=== PATIENT | male | born 1935 | race Caucasian/White ===

== ENCOUNTER 2017-06-28 17:04 | Observation (INO) ==
--- NOTE | 2017-06-28 17:21 | Emergency Department Note ---
Disposition Clinical Impression: Rectal bleeding Abdominal pain Qualifiers: Abdominal location: generalized Qualified Code(s): R10.84 - Generalized abdominal pain Disposition: Admitted As Inpatient Condition: Fair Referrals: Jared Woods MD [Primary Care Provider] - Forms: ED Satisfaction Letter, Work/School Release Time of Disposition: 19:29 Abdominal Pain HPI - General Chief Complaint: ED Abdominal Pain Stated Complaint: Abdominal pain/possible pancreatitis Time Seen by Provider: 06/28/17 17:15 Source: patient Mode of arrival: ambulatory Limitations: no limitations Nursing Notes Reviewed: Yes Vital Signs Reviewed: Yes - History of Present Illness HPI Narrative: 82-year-old male who has had intermittent abdominal pain for the last several weeks. Was told at an outside facility may has pancreatitis but did not do any testing. Any asking where his pain is today he says is really not having pain. States he also has intermittent bloating. Patient states he's never had a colonoscopy. Pt Subjective Complaint: abdominal pain Onset (ago): week(s) Consistency: intermittent Location: diffuse Pain Scale: 10 Quality: cramping, aching Radiation: none Migration to: no migration Improves with: nothing Worsens with: nothing Associated symptoms: Reports: other (Darks stools) Treatments prior to arrival: none - Related Data Home Medications Medication Instructions Recorded Confirmed Atorvastatin Calcium [Lipitor] 0.5 tab PO DAILY 05/19/15 08/15/15 Carbidopa/Levodopa 10/100 [Sinemet] 1 each PO TID 08/15/15 08/15/15 Carvedilol [Coreg] 1 tab PO DAILY 08/15/15 08/15/15 Ezetimibe [Zetia] 10 mg PO DAILY 08/15/15 08/15/15 Furosemide [Lasix] 40 mg PO DAILY 08/15/15 08/15/15 Losartan [Cozaar] 50 mg PO DAILY 08/15/15 08/15/15 Methylsulfonylmethane [MSM] 750 mg PO DAILY 08/15/15 08/15/15 [place]-3S/Dha/Epa/Fish Oil/D3 1 each PO DAILY 08/15/15 08/15/15 [[place]-3 + D Softgel] Tamsulosin [Flomax] 0.4 mg PO DAILY 08/15/15 08/15/15 Previous Rx's Medication Instructions Recorded Benzonatate [Tessalon] 200 mg PO TID PRN #30 capsule 08/17/15 GuaiFENesin ER [Mucinex] 600 mg PO BID PRN #20 tbbp.12hr 08/17/15 levoFLOXacin [Levaquin] 250 mg PO DAILY #7 tablet 08/17/15 Allergies Allergy/AdvReac Type Severity Reaction Status Date / Time isosorbide [From Imdur] Allergy Hives Verified 06/28/17 17:10 lisinopril Allergy Hives Verified 06/28/17 17:10 All systems ED: reviewed and negative except as stated. Constitutional: Denies: fever, chills, weakness, weight change Eyes: Denies: eye pain, eye discharge, vision change ENT ED: Denies: ear pain, throat pain, dental pain, hearing loss, epistaxis, congestion, dysphagia Cardiovascular: Denies: chest pain, palpitations, dyspnea on exertion, edema, syncope Respiratory: Denies: cough, dyspnea, wheezes, hemoptysis, stridor Gastrointestinal: Reports: abdominal pain, other. Denies: nausea, vomiting, diarrhea, constipation, hematemesis, melena, hematochezia Genitourinary: Denies: urgency, dysuria, frequency, hematuria Musculoskeletal: Denies: back pain, neck pain, arthralgia, myalgia Integumentary: Denies: rash, abrasion, lesions Neurological: Denies: headache, weakness, numbness, paresthesias, confusion, abnormal gait, vertigo Psychiatric: Denies: anxiety, depression, suicidal thoughts, homicidal thoughts , auditory hallucinations, visual hallucinations Endocrine: Denies: fatigue Hematological/Lymphatic: Denies: easy bleeding, easy bruising Allergic/Immunologic: Denies: facial swelling, urticaria Abdominal Pain PMH - Past Medical History Medical history: Reports: arthritis, cancer, CHF, coronary artery disease, DVT, dementia, hyperlipidemia, hypertension, kidney stones, myocardial infarction, renal disease Male Surgical History: Reports: other Psychiatric history: Reports: depression - Social History Smoking status: Never smoker Alcohol use: Reports: none Drug use: Reports: none Physical Exam - General Limitations: no limitations General appearance: alert - Head Head exam: atraumatic, normocephalic, normal inspection - Eye Eye exam: Present: normal appearance, PERRL, EOMI - ENT ENT exam: normal exam - Neck Neck exam: Present: normal inspection - Chest Chest inspection: Present: normal inspection, symmetric chest wall rise - Respiratory Respiratory exam: Present: normal lung sounds bilaterally - Cardiovascular Cardiovascular exam: Present: regular rate, normal rhythm, normal heart sounds - Abdominal Exam Abdominal exam: Present: soft. Absent: guarding, rebound, pulsatile mass - Extremities Exam Extremities exam: Present: normal inspection, full ROM. Absent: tenderness, pedal edema - Expanded Lower Extremity Exam Neurovascular/Tendon exam: Absent: motor deficit, sensory deficit, tendon deficit Gait: observed and normal - Back Exam Back exam: Present: normal inspection, full ROM. Absent: tenderness - Neurological Exam Neurological exam: Present: alert, oriented X3 - Psychiatric Psychiatric exam: Present: normal affect, normal mood - Skin Skin exam: Present: warm, dry, intact, normal color Course - Consultations Consultation #1: 82-year-old male who has had intermittent abdominal pain for several weeks and rectal bleeding. Hemoglobin has dropped about 1.3 g in the last several weeks. CT scan shows gallstones but no cholecystitis and is not really tender over the gallbladder. We'll admit to assure that he is not dropping his hemoglobin rapidly. Discussed with Dr. Herzog, admit Time: 19:27 Vital Signs Temperature 98.2 F 06/28/17 17:10 Pulse Rate 84 06/28/17 17:10 Respiratory Rate 20 06/28/17 17:10 Blood Pressure 144/81 06/28/17 17:10 O2 Sat by Pulse Oximetry 97 06/28/17 17:10 Temperature 98.2 F 06/28/17 17:10 Pulse Rate 78 06/28/17 17:27 Respiratory Rate 14 06/28/17 17:27 Blood Pressure 153/82 06/28/17 17:27 O2 Sat by Pulse Oximetry 96 06/28/17 17:27 Oxygen Delivery Oxygen Delivery Room Air Abdominal Pain - Lab Data Result diagrams: 06/28/17 18:26 06/28/17 18:26 Lab Results 06/28/17 06/28/17 06/28/17 Range/Units 17:50 18:26 18:26 WBC 9.6 (4.3-11.1) K/mcL RBC 4.21 (4.19-5.50) M/mcL Hgb 12.8 L (12.9-16.9) g/dL Hct 38.5 (37.5-50.1) % MCV 91.4 (83.0-100.0) fL MCH 30.4 (28.0-33.3) pg MCHC 33.2 (31.6-35.5) g/dL RDW 13.1 (11.5-14.5) % Plt Count 271 (140-400) K/mcL MPV 10.0 (9.4-12.4) fL Immature Gran % 0.7 (0-4) % Seg Neutrophils % 63.9 % Lymphocytes % 22.2 % Monocytes % 9.0 % Eosinophils % 3.3 % Basophils % 0.9 % Neutrophils # 6.1 (1.6-8.9) K/mcL Lymphocytes # 2.1 (0.6-4.6) K/mcL Monocytes # 0.9 (0.0-1.3) K/mcL Eosinophils # 0.3 (0.0-0.6) K/mcL Basophils # 0.1 (0.0-0.2) K/mcL Sodium 142 (136-145) mEq/L Potassium 4.0 (3.5-4.5) mEq/L Chloride 111 H (98-109) mEq/L Carbon Dioxide 22 (19-29) mEq/L BUN 19 (8-26) mg/dL Creatinine 1.52 H (0.72-1.25) mg/dL Est GFR ( Amer) 53 L (> 60) Est GFR (Non-Af Amer) 44 L (> 60) BUN/Creatinine Ratio 13 (6-26) Glucose 111 H (70-99) mg/dL Calculated Osmolality 297 (280-300) Lactic Acid (0.5-2.2) mmol/L Calcium 8.5 L (8.6-10.8) mg/dL Total Bilirubin 0.4 (0.2-1.2) mg/dL Direct Bilirubin 0.1 (0.0-0.5) mg/dL Indirect Bilirubin 0.3 (0.0-1.2) mg/dL AST 13 (5-34) Units/L ALT 13 (0-55) Units/L Alkaline Phosphatase 95 (38-126) Units/L Troponin I (0-0.03) ng/mL Serum Total Protein 6.0 (6.0-8.3) g/dL Albumin 3.3 L (3.5-5.0) g/dL Globulin 2.7 (2.4-3.5) g/dL Albumin/Globulin Ratio 1.2 (1.1-2.2) Amylase 85 (25-125) Units/L Lipase 24 (8-78) Units/L Stool Occult Blood Positive A (Negative) 06/28/17 06/28/17 Range/Units 18:26 18:26 WBC (4.3-11.1) K/mcL RBC (4.19-5.50) M/mcL Hgb (12.9-16.9) g/dL Hct (37.5-50.1) % MCV (83.0-100.0) fL MCH (28.0-33.3) pg MCHC (31.6-35.5) g/dL RDW (11.5-14.5) % Plt Count (140-400) K/mcL MPV (9.4-12.4) fL Immature Gran % (0-4) % Seg Neutrophils % % Lymphocytes % % Monocytes % % Eosinophils % % Basophils % % Neutrophils # (1.6-8.9) K/mcL Lymphocytes # (0.6-4.6) K/mcL Monocytes # (0.0-1.3) K/mcL Eosinophils # (0.0-0.6) K/mcL Basophils # (0.0-0.2) K/mcL Sodium (136-145) mEq/L Potassium (3.5-4.5) mEq/L Chloride (98-109) mEq/L Carbon Dioxide (19-29) mEq/L BUN (8-26) mg/dL Creatinine (0.72-1.25) mg/dL Est GFR ( Amer) (> 60) Est GFR (Non-Af Amer) (> 60) BUN/Creatinine Ratio (6-26) Glucose (70-99) mg/dL Calculated Osmolality (280-300) Lactic Acid 1.4 (0.5-2.2) mmol/L Calcium (8.6-10.8) mg/dL Total Bilirubin (0.2-1.2) mg/dL Direct Bilirubin (0.0-0.5) mg/dL Indirect Bilirubin (0.0-1.2) mg/dL AST (5-34) Units/L ALT (0-55) Units/L Alkaline Phosphatase (38-126) Units/L Troponin I 0.00 (0-0.03) ng/mL Serum Total Protein (6.0-8.3) g/dL Albumin (3.5-5.0) g/dL Globulin (2.4-3.5) g/dL Albumin/Globulin Ratio (1.1-2.2) Amylase (25-125) Units/L Lipase (8-78) Units/L Stool Occult Blood (Negative)
[2017-06-28 18:39] LABS: Basophils # 0.1 K/mcL (0.0-0.2); Basophils % 0.9 %; Eosinophils # 0.3 K/mcL (0.0-0.6); Eosinophils % 3.3 %; Hematocrit 38.5 % (37.5-50.1); Hemoglobin 12.8 g/dL (12.9-16.9); Immature Granulocytes % 0.7 % (0-4); Lymphocytes # 2.1 K/mcL (0.6-4.6); Lymphocytes % 22.2 %; Mean Corpuscular HGB Conc 33.2 g/dL (31.6-35.5); Mean Corpuscular Hemoglobin 30.4 pg (28.0-33.3); Mean Corpuscular Volume 91.4 fL (83.0-100.0); Monocytes # 0.9 K/mcL (0.0-1.3); Neutrophils # 6.1 K/mcL (1.6-8.9); Platelet Count 271 K/mcL (140-400); Red Blood Count 4.21 M/mcL (4.19-5.50); Red Cell Distribution Width 13.1 % (11.5-14.5); Segmented Neutrophils % 63.9 %
[2017-06-28 18:57] LABS: Albumin 3.3 g/dL (3.5-5.0); Albumin/Globulin Ratio 1.2 (1.1-2.2); Bilirubin,Direct 0.1 mg/dL (0.0-0.5); Bilirubin,Indirect 0.3 mg/dL (0.0-1.2); Bilirubin,Total 0.4 mg/dL (0.2-1.2); Calcium 8.5 mg/dL (8.6-10.8); Globulin 2.7 g/dL (2.4-3.5)
--- NOTE | 2017-06-29 00:26 | Internal Med History&Physical ---
Date of Encounter: 06/29/17 Time of Encounter: 11:00 Assessment and Plan (1) Rectal bleeding Current visit: Yes Status: Acute -Patient found to have occult positive stool in the ER. -Patient also with acute blood loss anemia but is hemodynamically stable. -Will consult GI for colonoscopy (2) Acute blood loss anemia Current visit: Yes Status: Acute -Secondary to the above; hemoglobin 12.8. -Will continue to monitor. (3) CKD (chronic kidney disease) stage 3, GFR 30-59 ml/min Current visit: Yes Status: Acute -Stable; creatinine at baseline. -Will continue to monitor. (4) DVT prophylaxis Current visit: Yes Status: Acute -SCDs Internal Medicine - H&P: HPI Chief complaint: Rectal bleeding Admitted From: Home Plans for Post Hospital Care: Home History of present illness: Patient is an 82-year-old male with past medical history significant for CKD stage III, who presented to the ER on 06/28/17 with lower GI bleed. Patient is a poor historian with suspected underlying dementia and is only oriented to person on exam. In the ER patient was found to have occult positive stool in addition to anemia (hemoglobin 12.8). Patient will be admitted to the medical floor for acute blood loss anemia secondary to lower GI bleed. Past Med Surg Social Fam HX - Past Medical History Medical history: arthritis, cancer, CHF, coronary artery disease, DVT, dementia , hyperlipidemia, hypertension, kidney stones, myocardial infarction, renal disease Psychiatric history: depression - Past Surgical History Surgical History: cancer surgery, coronary bypass (CABG), other - Social History Smoking Status: Never smoker Smokeless Tobacco Status: No Alcohol use: none Drug use: none - Family History Son Adopted: No Family Member Ethnicity: Non- Living Status: Still Living Hx Family Cardiac Disorders: Yes Hx Family Respiratory Disorders: No Hx Family Cancer: Yes Hx Family GI Disorders: No Hx Family Endocrine Disorder: No Hx Family Neuromuscular Disorders: No Hx Family Neurologic Disorders: No Hx Family HEENT Disorders: No Hx Family Autoimmune Disorders: No Internal Medicine - H&P: Meds Tamsulosin [Flomax] 0.4 mg PO DAILY 08/15/15 [History] Cholecalciferol (D-3) [Vitamin D] 3,000 unit PO DAILY 06/28/17 [History] Vit A/Vit C/Vit E/Zinc/Copper [Preservision Areds Tablet] 1 each PO BID [History] 3 Allergy/AdvReac Type Severity Reaction Status Date / Time isosorbide [From Imdur] Allergy Hives Verified 06/28/17 17:10 lisinopril Allergy Hives Verified 06/28/17 17:10 ROS unobtainable: due to mental status (Patient oriented to person only; suspected underlying dementia) All Systems PM: A 10-system review of systems was performed and is negative for pertinent findings except as documented above in the HPI. - Constitutional Vitals: Temp Pulse Resp BP Pulse Ox 97.9 F 76 18 174/84 96 06/28/17 21:49 06/28/17 21:49 06/28/17 21:49 06/28/17 21:49 06/28/17 23:00 General appearance: Present: A&O X 1 - Head Head exam: Present: atraumatic, normocephalic - Eye Eye exam: Present: normal appearance - ENT ENT exam: Present: mucous membranes moist - Respiratory Respiratory exam: Present: CTAB. Absent: accessory muscle use, rales, rhonchi, wheezes - Cardiovascular Cardiovascular exam: Present: RRR, +S1, +S2. Absent: diastolic murmur, gallop, rubs, systolic murmur - GI/Abdominal GI/Abdominal exam: Present: normal bowel sounds, soft, no peritoneal signs. Absent: distended, tenderness - Extremities Exam Extremities exam: Present: warm. Absent: pedal edema - Neurological Exam Neurological exam: Present: alert - Psychiatric Psychiatric exam: Present: normal mood - Skin Skin exam: Present: warm Internal Med - H&P Results - Labs CBC & Chem 7: 06/28/17 18:26 06/28/17 18:26
[2017-06-29] MEDS ORDERED: Naloxone 0.4 MG/ML INJ IVP PRN (00:37)
[2017-06-29 04:53] LABS: Basophils # 0.1 K/mcL (0.0-0.2); Basophils % 0.8 %; Eosinophils # 0.4 K/mcL (0.0-0.6); Eosinophils % 3.9 %; Hematocrit 41.5 % (37.5-50.1); Hemoglobin 13.8 g/dL (12.9-16.9); Immature Granulocytes % 0.6 % (0-4); Lymphocytes # 2.2 K/mcL (0.6-4.6); Mean Corpuscular HGB Conc 33.3 g/dL (31.6-35.5); Mean Corpuscular Hemoglobin 29.9 pg (28.0-33.3); Mean Platelet Volume 10.3 fL (9.4-12.4); Monocytes # 0.8 K/mcL (0.0-1.3); Monocytes % 7.3 %; Platelet Count 258 K/mcL (140-400); Red Blood Count 4.61 M/mcL (4.19-5.50); Red Cell Distribution Width 12.9 % (11.5-14.5); Segmented Neutrophils % 66.4 %
[2017-06-29 05:12] LABS: Calcium 8.9 mg/dL (8.6-10.8); Potassium 3.9 mEq/L (3.5-4.5)
--- NOTE | 2017-06-29 11:40 | Gastroenterology Consult Note ---
Date of Encounter: 06/29/17 Time of Encounter: 10:30 - Assessment and plan (1) Abdominal pain Current Visit: Yes Status: Acute Assessment and plan: Pt presents with abdominal pain. He had Hgb 12.8 in ER has increased to 13.8 this morning. He is not having any active bleeding or drop in Hgb would recommend he follow up as an outpatient for EGD and colonoscopy. Qualifiers: Abdominal location: left lower quadrant Qualified Code(s): R10.32 - Left lower quadrant pain - Time Spent With Patient Total time spent is greater than 50% in coordination of care (as documented) at patient's floor/unit and/or counseling patient: GI History of Present Illness - Data of Consult Patient: new to practice Consult date: 06/29/17 Requesting Physician: Aleksandr Au MD - Consult Narrative Reason for consult: anemia, positive hemoccult History of present illness: Mr. Gonzalez is a 82 year old male with past medical history significant for CKD stage III, renal cell carcinoma resected, DVTs and CAD. He presented to the ER on 06/28/17 with abdominal pain. In the ER patient was found to have occult positive stool hgb was 12.8. Hgb today is 13.8. The patient reports pain in his epigastric area and to LLQ but is a poor historian due to dementia and confusion. He denies nausea, vomiting, or dysphagia. He denies diarrhea or constipation, he denies bloody or tarry stools. His is not present during exam. CT abdomen showed cholelithiasis. No CT evidence of cholecystitis. Status post right nephrectomy. 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 Colonoscopy: denies EGD:denies NSAIDS/ASA: Anticoagulants: xarelto? has been on in the past for DVTs usure if he is still taking Past Med Surg Social Fam HX - Past Medical History Medical history: arthritis, cancer, CHF, coronary artery disease, DVT, dementia , hyperlipidemia, hypertension, kidney stones, myocardial infarction, renal disease Psychiatric history: depression - Past Surgical History Surgical History: cancer surgery, coronary bypass (CABG), other - Social History Smoking Status: Never smoker Smokeless Tobacco Status: No Alcohol use: none Drug use: none - Family History Son Adopted: No Family Member Ethnicity: Non- Living Status: Still Living Hx Family Cardiac Disorders: Yes Hx Family Respiratory Disorders: No Hx Family Cancer: Yes Hx Family GI Disorders: No Hx Family Endocrine Disorder: No Hx Family Neuromuscular Disorders: No Hx Family Neurologic Disorders: No Hx Family HEENT Disorders: No Hx Family Autoimmune Disorders: No Review of Systems: difficult to obtain with accuracy due to dementia GI: as per [place] GENERAL: denies fever, or chills EYES: denies yellow discoloration ENT: denies pain with swallowing or difficulty swallowing CARDIO: denies chest pain, palpitations RESP: Shortness of breath with exertion : denies change in color of urine NEURO: weakness HEME: Denies any bruising MS: denies joint pain, joint swelling or back pain. DERM: denies rash or itching PSYCH: Denies history of anxiety or depression - Constitutional Vitals: Temp Pulse Resp BP Pulse Ox 97.7 F 74 16 176/89 95 06/29/17 10:45 06/29/17 10:45 06/29/17 10:45 06/29/17 10:45 06/29/17 10:45 Exam: CONSTITUTIONAL:~alert, no acute distress.~HEAD:~normocephalic.~EYES:~no jaundice.~NECK:~no obvious swelling.~HEART:~regular rate and rhythm, systolic murmur noted.~LUNGS:~bilateral good air entry.~ABDOMEN:~non distended, soft, tender LLQ, no masses palpable, no organomegaly.~RECTAL EXAM:~Deferred.~ EXTREMITIES:~no clubbing, cyanosis or edema.~SKIN:~no stigmata of chronic liver disease.~NEUROLOGIC:~no obvious focal defect.~~~~ Results - Labs CBC & Chem 7: 06/29/17 03:37 06/29/17 03:37 Labs: Last Result Calcium 8.9 mg/dL (8.6-10.8) 06/29/17 03:37 Troponin I 0.00 ng/mL (0-0.03) 06/28/17 18:26 Stool Occult Blood Positive (Negative) A 06/28/17 17:50 Entire Visit Hgb 13.8 g/dL (12.9-16.9) 06/29/17 03:37 Hct 41.5 % (37.5-50.1) 06/29/17 03:37 Total Bilirubin 0.4 mg/dL (0.2-1.2) 06/28/17 18:26 AST 13 Units/L (5-34) 06/28/17 18:26 ALT 13 Units/L (0-55) 06/28/17 18:26 Amylase 85 Units/L (25-125) 06/28/17 18:26 Lipase 24 Units/L (8-78) 06/28/17 18:26 Consult Discharge Plan - Plan Referrals: Jared Woods MD [Primary Care Provider] -
[2017-06-29 13:41] LABS: Bilirubin,Urine Negative (Negative); Blood,Urine Negative (Negative); Clarity,Urine Clear (Clear); Color,Urine Yellow (Yellow); Glucose,Urine (UA) Normal (Normal); Ketones,Urine Negative (Negative); Leukocyte Esterase,Urine Negative (Negative); Nitrite,Urine Negative (Negative); PH,Urine 7.5 pH Units (5.0-8.0); Protein,Urine Negative (Neg-Trace); Specific Gravity,Urine 1.019 (1.010-1.025); Urobilinogen,Urine Normal (Normal)
--- NOTE | 2017-06-29 16:37 | Internal Med Progress Note ---
Date of Encounter: 06/29/17 Time of Encounter: 10:00 - Assessment and plan (1) Abdominal pain Current Visit: Yes Status: Acute Assessment and plan: No evidence of intra-abdominal pathology to account for this based on clinical evaluation and CAT scan. We will monitor. Qualifiers: Abdominal location: left lower quadrant Qualified Code(s): R10.32 - Left lower quadrant pain (2) Rectal bleeding Current Visit: Yes Status: Acute Assessment and plan: GI consult. Monitor hemoglobin and hematocrit. Follow-up hemoglobin was 13.8 which has increased from previous. Monitor hemodynamically. (3) CKD (chronic kidney disease) stage 3, GFR 30-59 ml/min Current Visit: Yes Status: Acute Assessment and plan: Avoid nephrotoxins. Monitor creatinine. (4) DVT prophylaxis Current Visit: Yes Status: Acute Assessment and plan: SCDs. (5) Risk for falls Current Visit: Yes Status: Acute Assessment and plan: Fall precautions. PT OT (6) Dementia Current Visit: Yes Status: Acute Assessment and plan: Patient's family member states that she does not feel safe taking him home due to fall risk and, impairment. I will consult PT OT and clinical social work aide for placement. Qualifiers: Dementia type: Alzheimer's disease Alzheimer's disease onset: unspecified onset Dementia behavioral disturbance: without behavioral disturbance Qualified Code(s): G30.9 - Alzheimer's disease, unspecified; F02.80 - Dementia in other diseases classified elsewhere without behavioral disturbance; F02.80 - Dementia in other diseases classified elsewhere without behavioral disturbance; F02.80 - Dementia in other diseases classified elsewhere without behavioral disturbance - Subjective Interval history: Patient brought into the hospital for evaluation of abdominal pain. Per ED note was also reported that he had rectal bleeding however the patient has dementia and cannot confirm this. Fecal occult blood was positive. CT scan of the abdomen and pelvis shows gallstones.. Patient currently denies any complaints. - Constitutional Vitals: Temp Pulse Resp BP Pulse Ox 96.8 F L 76 16 164/81 97 06/29/17 15:20 06/29/17 15:20 06/29/17 15:20 06/29/17 15:20 06/29/17 15:20 General appearance: Present: A&O X 1 - Respiratory Respiratory exam: Present: CTAB. Absent: accessory muscle use, rales, rhonchi, wheezes - Cardiovascular Cardiovascular exam: Present: RRR, +S1, +S2. Absent: diastolic murmur, gallop, rubs, systolic murmur - GI/Abdominal GI/Abdominal exam: Present: normal bowel sounds, soft, no peritoneal signs. Absent: distended, tenderness - Extremities Exam Extremities exam: Present: warm, radial pulses palpable and symmetrical. Absent : calf tenderness, cyanotic, pedal edema - Skin Skin exam: Present: dry, intact Internal Medicine: Result - Labs CBC & Chem 7: 06/29/17 03:37 06/29/17 03:37 Labs: Short CBC 06/29/17 Range/Units 03:37 WBC 10.6 (4.3-11.1) K/mcL Hgb 13.8 (12.9-16.9) g/dL Hct 41.5 (37.5-50.1) % Plt Count 258 (140-400) K/mcL Neutrophils # 7.0 (1.6-8.9) K/mcL BMP 06/29/17 03:37 Sodium 143 Potassium 3.9 Chloride 109 Carbon Dioxide 27 BUN 17 Creatinine 1.56 H Glucose 94 Calcium 8.9 Urine 06/29/17 Range/Units 13:20 Urine Color Yellow (Yellow) Urine Clarity Clear (Clear) Urine pH 7.5 (5.0-8.0) pH Units Ur Specific [place] 1.019 (1.010-1.025) Urine Protein Negative (Neg-Trace) mg/dL Urine Glucose (UA) Normal (Normal) mg/dL Consult Discharge Plan - Plan Referrals: Jared Woods MD [Primary Care Provider] -
[2017-06-29] MEDS ORDERED: Pantoprazole 40 MG VIAL IVP SCH (16:45)
[2017-06-29] MEDS: clonazePAM 0.5 MG TABLET PO PRN (18:17)
--- NOTE | 2017-06-29 19:09 | Electrocardiograph Report ---
[address] [place] [address] Test Date: 2017-06-28 Pat Name: Serjio Gonzalez Department: 102 Room: 3B Gender: M Occupational Therapy Director: CLIFT[place] : 1935 Requested By: Manuel Nolen Order Number: [id number] Reading MD: Moshe Sharma MD Measurements Intervals [place] Rate: 76 P: -27 SD: 165 QRS: -5 QRSD: 109 T: 6 QT: 388 QTc: 418 Interpretive Statements SINUS RHYTHM INFERIOR MYOCARDIAL INFARCTION PROBABLY OLD Electronically Signed On 06-29-2017 19:07:26 EST by Moshe Sharma MD
[2017-06-30 05:50] LABS: Basophils # 0.1 K/mcL (0.0-0.2); Basophils % 0.9 %; Eosinophils # 0.3 K/mcL (0.0-0.6); Eosinophils % 3.8 %; Hematocrit 43.1 % (37.5-50.1); Hemoglobin 14.3 g/dL (12.9-16.9); Immature Granulocytes % 0.5 % (0-4); Lymphocytes # 1.6 K/mcL (0.6-4.6); Lymphocytes % 18.4 %; Mean Corpuscular HGB Conc 33.2 g/dL (31.6-35.5); Mean Corpuscular Hemoglobin 29.7 pg (28.0-33.3); Mean Corpuscular Volume 89.6 fL (83.0-100.0); Mean Platelet Volume 10.6 fL (9.4-12.4); Monocytes # 0.8 K/mcL (0.0-1.3); Monocytes % 9.5 %; Neutrophils # 5.8 K/mcL (1.6-8.9); Platelet Count 251 K/mcL (140-400); Red Blood Count 4.81 M/mcL (4.19-5.50); Red Cell Distribution Width 12.7 % (11.5-14.5); Segmented Neutrophils % 66.9 %
[2017-06-30 06:07] LABS: Calcium 8.9 mg/dL (8.6-10.8); Potassium 4.1 mEq/L (3.5-4.5)
[2017-06-30] MEDS: Acetaminophen 325 MG TABLET PO PRN (16:27)
--- NOTE | 2017-06-30 17:45 | Internal Med Progress Note ---
Date of Encounter: 06/30/17 Time of Encounter: 15:00 - Assessment and plan (1) Abdominal pain Current Visit: Yes Status: Acute Assessment and plan: No evidence of intra-abdominal pathology to account for this based on clinical evaluation and CAT scan. We will monitor. Qualifiers: Abdominal location: left lower quadrant Qualified Code(s): R10.32 - Left lower quadrant pain (2) Rectal bleeding Current Visit: Yes Status: Acute Assessment and plan: I appreciate GI recommendations. Currently hemoglobin is stable and does not require any further inpatient workup. We will monitor hemodynamics. (3) CKD (chronic kidney disease) stage 3, GFR 30-59 ml/min Current Visit: Yes Status: Acute Assessment and plan: Creatinine stable. No further inpatient workup for monitoring needed. (4) DVT prophylaxis Current Visit: Yes Status: Acute Assessment and plan: SCDs. (5) Risk for falls Current Visit: Yes Status: Acute Assessment and plan: Fall precautions. PT OT (6) Dementia Current Visit: Yes Status: Acute Assessment and plan: Per social work faculty member's note he is unsafe for discharge home. Currently pending placement. Qualifiers: Dementia type: Alzheimer's disease Alzheimer's disease onset: unspecified onset Dementia behavioral disturbance: without behavioral disturbance Qualified Code(s): G30.9 - Alzheimer's disease, unspecified; F02.80 - Dementia in other diseases classified elsewhere without behavioral disturbance; F02.80 - Dementia in other diseases classified elsewhere without behavioral disturbance; F02.80 - Dementia in other diseases classified elsewhere without behavioral disturbance - Subjective Interval history: 06/30/2017: A she was totally confused and cannot provide any history. He currently has a sitter said that patient was mostly cooperative but sometimes anxious and agitated and trying to get out of bed 06/29/2017: Patient brought into the hospital for evaluation of abdominal pain. Per ED note was also reported that he had rectal bleeding however the patient has dementia and cannot confirm this. Fecal occult blood was positive. CT scan of the abdomen and pelvis shows gallstones.. Patient currently denies any complaints. - Constitutional Vitals: Temp Pulse Resp BP Pulse Ox 97.9 F 102 16 117/80 97 06/30/17 17:05 06/30/17 17:05 06/30/17 17:05 06/30/17 17:05 06/30/17 17:05 General appearance: Present: A&O X 1 - Respiratory Respiratory exam: Present: CTAB. Absent: accessory muscle use, rales, rhonchi, wheezes - Cardiovascular Cardiovascular exam: Present: RRR, +S1, +S2. Absent: diastolic murmur, gallop, rubs, systolic murmur - GI/Abdominal GI/Abdominal exam: Present: normal bowel sounds, soft, no peritoneal signs. Absent: distended, tenderness - Extremities Exam Extremities exam: Present: warm, radial pulses palpable and symmetrical. Absent : calf tenderness, cyanotic, pedal edema Internal Medicine: Result - Labs CBC & Chem 7: 06/30/17 05:29 06/30/17 05:29 Labs: Short CBC 06/30/17 Range/Units 05:29 WBC 8.6 (4.3-11.1) K/mcL Hgb 14.3 (12.9-16.9) g/dL Hct 43.1 (37.5-50.1) % Plt Count 251 (140-400) K/mcL Neutrophils # 5.8 (1.6-8.9) K/mcL BMP 06/30/17 05:29 Sodium 140 Potassium 4.1 Chloride 106 Carbon Dioxide 26 BUN 17 Creatinine 1.48 H Glucose 97 Calcium 8.9 Consult Discharge Plan - Plan Referrals: Jared Woods MD [Primary Care Provider] -
[2017-07-01] MEDS: clonazePAM 0.5 MG TABLET PO PRN ×2 (02:59→23:25)
--- NOTE | 2017-07-01 13:28 | Internal Med Progress Note ---
Date of Encounter: 07/01/17 Time of Encounter: 11:00 - Assessment and plan (1) Abdominal pain Current Visit: Yes Status: Acute Assessment and plan: No evidence of intra-abdominal pathology to account for this based on clinical evaluation and CAT scan. We will monitor. Qualifiers: Abdominal location: left lower quadrant Qualified Code(s): R10.32 - Left lower quadrant pain (2) Rectal bleeding Current Visit: Yes Status: Acute Assessment and plan: I appreciate GI recommendations. Currently hemoglobin is stable and does not require any further inpatient workup. We will monitor hemodynamics. We will stop checking hemoglobin and hematocrit. (3) CKD (chronic kidney disease) stage 3, GFR 30-59 ml/min Current Visit: Yes Status: Acute Assessment and plan: Creatinine stable. No further inpatient workup for monitoring needed. (4) DVT prophylaxis Current Visit: Yes Status: Acute Assessment and plan: SCDs. No heparin or Lovenox due to fall risk. (5) Risk for falls Current Visit: Yes Status: Acute Assessment and plan: Fall precautions. PT OT (6) Dementia Current Visit: Yes Status: Acute Assessment and plan: Pending placement and subacute rehabilitation. Per neonatal social worker's note he is unsafe for discharge home. Currently pending placement. Qualifiers: Dementia type: Alzheimer's disease Alzheimer's disease onset: unspecified onset Dementia behavioral disturbance: without behavioral disturbance Qualified Code(s): G30.9 - Alzheimer's disease, unspecified; F02.80 - Dementia in other diseases classified elsewhere without behavioral disturbance; F02.80 - Dementia in other diseases classified elsewhere without behavioral disturbance; F02.80 - Dementia in other diseases classified elsewhere without behavioral disturbance - Subjective Interval history: 07/01/2017: He cannot provide history due to advanced dementia. He is somnolent. Per sitter he has been agitated last night. 06/30/2017: A she was totally confused and cannot provide any history. He currently has a sitter said that patient was mostly cooperative but sometimes anxious and agitated and trying to get out of bed 06/29/2017: Patient brought into the hospital for evaluation of abdominal pain. Per ED note was also reported that he had rectal bleeding however the patient has dementia and cannot confirm this. Fecal occult blood was positive. CT scan of the abdomen and pelvis shows gallstones.. Patient currently denies any complaints. - Constitutional Vitals: Temp Pulse Resp BP Pulse Ox 97.3 F L 73 16 139/82 95 07/01/17 02:28 07/01/17 02:28 07/01/17 02:28 07/01/17 02:28 07/01/17 02:28 General appearance: Present: A&O X 1 Exam: somnolent, arousable - Respiratory Respiratory exam: Present: CTAB. Absent: accessory muscle use, rales, rhonchi, wheezes - Cardiovascular Cardiovascular exam: Present: RRR, +S1, +S2. Absent: diastolic murmur, gallop, rubs, systolic murmur - GI/Abdominal GI/Abdominal exam: Present: normal bowel sounds, soft, no peritoneal signs. Absent: distended, tenderness - Skin Skin exam: Present: dry, intact Internal Medicine: Result - Labs CBC & Chem 7: 06/30/17 05:29 06/30/17 05:29 Consult Discharge Plan - Plan Referrals: Jared Woods MD [Primary Care Provider] -
[2017-07-01] MEDS: Acetaminophen 325 MG TABLET PO PRN (15:39)
--- NOTE | 2017-07-02 08:31 | Discharge Summary ---
Date of Encounter: 07/02/17 Time of Encounter: 08:28 - Discharge Diagnosis (1) Abdominal pain Priority: Primary Status: Acute Qualifiers: Abdominal location: left lower quadrant Qualified Code(s): R10.32 - Left lower quadrant pain (2) Rectal bleeding Priority: Secondary Status: Acute (3) CKD (chronic kidney disease) stage 3, GFR 30-59 ml/min Priority: Secondary Status: Acute (4) DVT prophylaxis Priority: Secondary Status: Acute (5) Risk for falls Priority: Secondary Status: Acute (6) Dementia Priority: Secondary Status: Acute Qualifiers: Dementia type: Alzheimer's disease Alzheimer's disease onset: unspecified onset Dementia behavioral disturbance: without behavioral disturbance Qualified Code(s): G30.9 - Alzheimer's disease, unspecified; F02.80 - Dementia in other diseases classified elsewhere without behavioral disturbance; F02.80 - Dementia in other diseases classified elsewhere without behavioral disturbance; F02.80 - Dementia in other diseases classified elsewhere without behavioral disturbance - Discharge Medications Prescriptions: clonazePAM [Klonopin] 0.5 mg PO TID PRN #10 tablet PRN Reason: Anxiety Home Medications: Tamsulosin [Flomax] 0.4 mg PO DAILY 08/15/15 [History] Cholecalciferol (D-3) [Vitamin D] 3,000 unit PO DAILY 06/28/17 [History] Vit A/Vit C/Vit E/Zinc/Copper [Preservision Areds Tablet] 1 each PO BID [History] clonazePAM [Klonopin] 0.5 mg PO TID PRN #10 tablet 07/02/17 [Rx] Allergies/Adverse Reactions: 3 Allergy/AdvReac Type Severity Reaction Status Date / Time isosorbide [From Imdur] Allergy Hives Verified 06/28/17 17:10 lisinopril Allergy Hives Verified 06/28/17 17:10 Date of admission: 06/28/17 19:47 Primary care physician: Jared Woods MD Consults: 06/29/17 00:41 Consult to Gastroenterology [CONS] Routine Consulting Provider: Gastroenterology Genevieve Reason for Consult: lower GI bleed Call Completed: No 06/29/17 12:23 Consult to Compensation And Benefits Administrator [CONS] Routine Reason for SW Consult: discharge needs 06/29/17 12:34 Consult to Occupational Therapy [CONS] Stat Comment: Evaluate, develop and implement POC Reason for Consult: discharge planning, DC today Consult to Physical Therapy [CONS] Stat Comment: Evaluate, develop and implement POC Reason for Consult: discharge planning, DC today - Patient Status Disposition: Transfer SNF Condition: Fair Functional capacity at discharge: uses cane/walker Overall status at discharge: patient is progressing back to baseline - Discharge Instructions Follow Up With: Jared Woods MD [Primary Care Provider] - - Diet and Activity Activity: as per physical therapy Diet: regular diet Hospital course: Mr. Gonzalez is a 82 year old male with history of dementia and chronic kidney disease who was brought to the hospital for evaluation of abdominal pain. He has a very poor historian due to moderate dementia and per emergency room documentation at the time of evaluation he denied abdominal pain. However it was noted that he had positive fecal occult blood and his hemoglobin was 12.8. He was referred for admission. GI was consulted. His hemoglobin trending up during this hospitalization to 14.3 2 days ago without any transfusion. He had no noted rectal bleed, hematemesis or melena. He had not been complaining of abdominal pain. CT of the abdomen and pelvis on admission showed no acute findings. Incidentally noted cholelithiasis with no CT evidence of cholecystitis. Status post right nephrectomy. His creatinine has been elevated but stable throughout this admission. He was evaluated by physical therapy and found to be high risk for falls and to require subacute rehabilitation. He was referred to rehabilitation and will be discharged in a stable condition. - Time Spent with Patient Total time spent providing and/or coordinating discharge services: - Constitutional Vitals: Temp Pulse Resp BP Pulse Ox 97.9 F 71 16 158/89 91 07/02/17 06:44 07/02/17 06:44 07/02/17 06:44 07/02/17 06:44 07/02/17 06:44 General appearance: Present: A&O X 1 - Respiratory Respiratory exam: Present: CTAB. Absent: accessory muscle use, rales, rhonchi, wheezes - Cardiovascular Cardiovascular exam: Present: RRR, +S1, +S2. Absent: diastolic murmur, gallop, rubs, systolic murmur - GI/Abdominal GI/Abdominal exam: Present: normal bowel sounds, soft, no peritoneal signs. Absent: distended, tenderness
--- NOTE | 2017-07-02 08:36 | Physician Discharge Referral ---
ExtendedCare Referral Info Provider in Charge after Transfer: PCP Institutional Level of Care: Skilled - Diagnosis (1) Abdominal pain Status: Acute (2) Rectal bleeding Status: Acute (3) CKD (chronic kidney disease) stage 3, GFR 30-59 ml/min Status: Acute (4) DVT prophylaxis Status: Acute (5) Risk for falls Status: Acute (6) Dementia Status: Acute - Transfer Medications Prescriptions: clonazePAM [Klonopin] 0.5 mg PO TID PRN #10 tablet PRN Reason: Anxiety Home Medications: Tamsulosin [Flomax] 0.4 mg PO DAILY 08/15/15 [History] Cholecalciferol (D-3) [Vitamin D] 3,000 unit PO DAILY 06/28/17 [History] Vit A/Vit C/Vit E/Zinc/Copper [Preservision Areds Tablet] 1 each PO BID [History] clonazePAM [Klonopin] 0.5 mg PO TID PRN #10 tablet 07/02/17 [Rx] Allergies/Adverse Reactions: 3 Allergy/AdvReac Type Severity Reaction Status Date / Time isosorbide [From Imdur] Allergy Hives Verified 06/28/17 17:10 lisinopril Allergy Hives Verified 06/28/17 17:10 - Respiratory Orders Smoking Cessation: Smoking cessation has been advised. For more information, call the [employer] Tobacco Quit Line at 2-691-RUQA-NOW. - Advance Directives Living Will: Yes Power of Resp Therapist: Yes Code Status: Full Code - Mobility Orders Ambulate - Rehabiliation Orders Rehab Potential: Fair Rehab Orders: Evaluation for Physical Therapy, Evaluation for Occupational Therapy - Diet Orders Regular CERTIFICATION: I certify that the transfer of the above named patient to an Extended Care Facility is necessary for the continuing treatment of the diagnosis listed. The above information is true and accurate reflection of patient's current condition. Confidential - Redisclosure prohibited without a patient's written consent.
--- NOTE | 2017-07-03 11:04 | Physician Discharge Referral ---
Home Health/Hosp Referral Info Transfer to: Home Health Provider in Charge Post Discharge: PCP - Diagnosis (1) Abdominal pain Status: Acute (2) Rectal bleeding Status: Acute (3) CKD (chronic kidney disease) stage 3, GFR 30-59 ml/min Status: Acute (4) DVT prophylaxis Status: Acute (5) Risk for falls Status: Acute (6) Dementia Status: Acute - Respiratory Orders Smoking Cessation: Smoking cessation has been advised. For more information, call the [employer] Tobacco Quit Line at 0-353-DPEH-NOW. - Diet/Nutrition Diet/Nutrition Orders: Regular - Activity Activity Orders: Walker (Fall precautions) - Services Needed Following services are medically necessary services: Nursing, Home Health Aide, Physical Therapy, Occupational Therapy - Transfer Medications Prescriptions: clonazePAM [Clonazepam] 0.25 mg PO TID PRN #20 tab.rapdis PRN Reason: Agitation Home Medications: Tamsulosin [Flomax] 0.4 mg PO DAILY 08/15/15 [History] Cholecalciferol (D-3) [Vitamin D] 3,000 unit PO DAILY 06/28/17 [History] Vit A/Vit C/Vit E/Zinc/Copper [Preservision Areds Tablet] 1 each PO BID [History] clonazePAM [Clonazepam] 0.25 mg PO TID PRN #20 tab.rapdis 07/02/17 [Rx] Allergies/Adverse Reactions: 3 Allergy/AdvReac Type Severity Reaction Status Date / Time isosorbide [From Imdur] Allergy Hives Verified 06/28/17 17:10 lisinopril Allergy Hives Verified 06/28/17 17:10 Certification: Further, I certify that my clinical findings support that this patient is homebound (i.e. absences from home require considerable and taxing effort and are for medical reasons or denominational services or infrequently or short duration when for other reasons) because: Homebound Reason: Patient requires assistance of a person or device to safely leave home, Leaving home requires considerable and taxing effort due to condition, Altered mental status requiring supervision when leaving home Attestation: My signature below is to certify that this patient is under my care and that I, or nurse practitioner, or a physician's training and development assistant working with me, has a face-to -face encounter with this patient.
--- NOTE | 2017-07-03 19:07 | Internal Med Progress Note ---
Date of Encounter: 07/03/17 Time of Encounter: 10:00 - Assessment and plan (1) Abdominal pain Current Visit: Yes Status: Acute Assessment and plan: No evidence of intra-abdominal pathology to account for this based on clinical evaluation and CAT scan. We will monitor. Qualifiers: Abdominal location: left lower quadrant Qualified Code(s): R10.32 - Left lower quadrant pain (2) Rectal bleeding Current Visit: Yes Status: Acute Assessment and plan: Patient remains stable from a medical standpoint for discharge home with home hospice or home health if he had enough support in the community. Patient's requests subacute rehabilitation placement. I appreciate GI recommendations. Currently hemoglobin is stable and does not require any further inpatient workup. We will monitor hemodynamics. We will stop checking hemoglobin and hematocrit. (3) CKD (chronic kidney disease) stage 3, GFR 30-59 ml/min Current Visit: Yes Status: Acute Assessment and plan: Creatinine stable. No further inpatient workup for monitoring needed. (4) DVT prophylaxis Current Visit: Yes Status: Acute Assessment and plan: SCDs. No heparin or Lovenox due to fall risk. (5) Risk for falls Current Visit: Yes Status: Acute Assessment and plan: Fall precautions. PT OT (6) Dementia Current Visit: Yes Status: Acute Assessment and plan: Pending placement and subacute rehabilitation. I discussed the case with the sr. social media & mobile manager today. The patient's cannot take care of him at home and requests placement. Per sr. social media & mobile manager's note he is unsafe for discharge home. Currently pending placement. Qualifiers: Dementia type: Alzheimer's disease Alzheimer's disease onset: unspecified onset Dementia behavioral disturbance: without behavioral disturbance Qualified Code(s): G30.9 - Alzheimer's disease, unspecified; F02.80 - Dementia in other diseases classified elsewhere without behavioral disturbance; F02.80 - Dementia in other diseases classified elsewhere without behavioral disturbance; F02.80 - Dementia in other diseases classified elsewhere without behavioral disturbance - Subjective Interval history: 07/03/2017: Patient cannot provide any history due to advanced dementia. He is noncooperative. He denies any pain. Denies shortness of breath. 07/01/2017: He cannot provide history due to advanced dementia. He is somnolent. Per sitter he has been agitated last night. 06/30/2017: A she was totally confused and cannot provide any history. He currently has a sitter said that patient was mostly cooperative but sometimes anxious and agitated and trying to get out of bed 06/29/2017: Patient brought into the hospital for evaluation of abdominal pain. Per ED note was also reported that he had rectal bleeding however the patient has dementia and cannot confirm this. Fecal occult blood was positive. CT scan of the abdomen and pelvis shows gallstones.. Patient currently denies any complaints. - Constitutional Vitals: Temp Pulse Resp BP Pulse Ox 98.0 F 97 18 122/74 95 07/03/17 19:03 07/03/17 19:03 07/03/17 19:03 07/03/17 19:03 07/03/17 19:03 General appearance: Present: A&O X 1 - Eye Eye exam: Present: PERRL, conjuntiva pink, sclera anicteric Pupils: Present: PERRL - Respiratory Respiratory exam: Present: CTAB. Absent: accessory muscle use, rales, rhonchi, wheezes - Cardiovascular Cardiovascular exam: Present: RRR, +S1, +S2. Absent: diastolic murmur, gallop, rubs, systolic murmur Internal Medicine: Result - Labs CBC & Chem 7: 06/30/17 05:29 06/30/17 05:29 Consult Discharge Plan - Plan Instructions: Clonazepam (By mouth) Referrals: Jared Woods MD [Primary Care Provider] - Prescriptions: clonazePAM [Clonazepam] 0.25 mg PO TID PRN #20 tab.rapdis PRN Reason: Agitation
--- NOTE | 2017-07-04 18:48 | Internal Med Progress Note ---
Date of Encounter: 07/04/17 Time of Encounter: 11:00 - Assessment and plan (1) Abdominal pain Current Visit: Yes Status: Acute Assessment and plan: Possibly related to mild constipation. We will start bowel regimen. No evidence of intra-abdominal pathology to account for this based on clinical evaluation and CAT scan. We will monitor. Qualifiers: Abdominal location: left lower quadrant Qualified Code(s): R10.32 - Left lower quadrant pain (2) Rectal bleeding Current Visit: Yes Status: Acute Assessment and plan: No evidence of rectal bleeding. He is hemodynamically stable. Hemoglobin has been stable for the first 3 days. We will obtain a CBC tomorrow to assure stability. Patient remains stable from a medical standpoint for discharge home with home hospice or home health if he had enough support in the community. Patient's requests subacute rehabilitation placement. I appreciate GI recommendations. Currently hemoglobin is stable and does not require any further inpatient workup. We will monitor hemodynamics. We will stop checking hemoglobin and hematocrit. (3) CKD (chronic kidney disease) stage 3, GFR 30-59 ml/min Current Visit: Yes Status: Acute Assessment and plan: Creatinine stable. No further inpatient workup for monitoring needed. (4) DVT prophylaxis Current Visit: Yes Status: Acute Assessment and plan: SCDs. No heparin or Lovenox due to fall risk. (5) Risk for falls Current Visit: Yes Status: Acute Assessment and plan: Fall precautions. PT OT (6) Dementia Current Visit: Yes Status: Acute Assessment and plan: CT of the head obtained to rule out intracranial pathology reveals no acute findings. Pending placement and subacute rehabilitation. I discussed the case with the public health social worker today. The patient's cannot take care of him at home and requests placement. Per public health social worker's note he is unsafe for discharge home. Currently pending placement. Qualifiers: Dementia type: Alzheimer's disease Alzheimer's disease onset: unspecified onset Dementia behavioral disturbance: without behavioral disturbance Qualified Code(s): G30.9 - Alzheimer's disease, unspecified; F02.80 - Dementia in other diseases classified elsewhere without behavioral disturbance; F02.80 - Dementia in other diseases classified elsewhere without behavioral disturbance; F02.80 - Dementia in other diseases classified elsewhere without behavioral disturbance - Subjective Interval history: 07/04/2017: Patient remains confused and cannot provide history. He becomes agitated when he was assisted with changing his clothes but was easily reoriented. 07/03/2017: Patient cannot provide any history due to advanced dementia. He is noncooperative. He denies any pain. Denies shortness of breath. 07/01/2017: He cannot provide history due to advanced dementia. He is somnolent. Per sitter he has been agitated last night. 06/30/2017: A she was totally confused and cannot provide any history. He currently has a sitter said that patient was mostly cooperative but sometimes anxious and agitated and trying to get out of bed 06/29/2017: Patient brought into the hospital for evaluation of abdominal pain. Per ED note was also reported that he had rectal bleeding however the patient has dementia and cannot confirm this. Fecal occult blood was positive. CT scan of the abdomen and pelvis shows gallstones.. Patient currently denies any complaints. - Constitutional Vitals: Temp Pulse Resp BP Pulse Ox 98.2 F 90 16 127/80 98 07/04/17 07:30 07/04/17 07:30 07/04/17 07:30 07/04/17 07:30 07/04/17 07:30 General appearance: Present: A&O X 1 - Respiratory Respiratory exam: Present: CTAB. Absent: accessory muscle use, rales, rhonchi, wheezes - Cardiovascular Cardiovascular exam: Present: RRR, +S1, +S2. Absent: diastolic murmur, gallop, rubs, systolic murmur - GI/Abdominal GI/Abdominal exam: Present: normal bowel sounds, soft, no peritoneal signs. Absent: distended, tenderness Internal Medicine: Result - Labs CBC & Chem 7: 06/30/17 05:29 06/30/17 05:29 - Impressions Impressions Head CT 07/04/17 16:35 IMPRESSION: No acute intracranial abnormality is identified. Interval placement of a right frontal approach ventriculostomy catheter since 2014, with similar size ventricles to the previous examination. Chronic generalized age-appropriate atrophy, with chronic microvascular ischemic changes. D/ / Jared Crews MD / Jared Crews MD Interpreting Provider: Jared Crews MD Chest X-Ray 07/04/17 16:37 IMPRESSION: No evidence of pneumonia or any other acute cardiopulmonary abnormality. D/ / Victorino Beyer / Victorino Beyer Interpreting Provider: Victorino Beyer Consult Discharge Plan - Plan Instructions: Clonazepam (By mouth) Referrals: Jared Woods MD [Primary Care Provider] - Prescriptions: clonazePAM [Clonazepam] 0.25 mg PO TID PRN #20 tab.rapdis PRN Reason: Agitation
[2017-07-04] MEDS: Sennosides/Docusate Sodium TABLET PO SCH (21:07)
[2017-07-05 04:45] LABS: Hematocrit 44.5 % (37.5-50.1); Hemoglobin 14.7 g/dL (12.9-16.9); Mean Corpuscular Hemoglobin 29.3 pg (28.0-33.3); Mean Corpuscular Volume 88.6 fL (83.0-100.0); Mean Platelet Volume 10.3 fL (9.4-12.4); Platelet Count 289 K/mcL (140-400); Red Blood Count 5.02 M/mcL (4.19-5.50); Red Cell Distribution Width 12.8 % (11.5-14.5)
--- NOTE | 2017-07-05 09:19 | Internal Med Progress Note ---
<Yunior Garcia - Last Filed: 07/05/17 10:52> Date of Encounter: 07/05/17 Time of Encounter: 09:17 - Assessment and plan (1) Abdominal pain Current Visit: Yes Status: Acute Assessment and plan: Unclear etiology at this point as CT did not demonstrate any acute findings Possibly related to constipation and he has been started on Senna plus He is tolerating his soft diet with Ensure supplement Qualifiers: Abdominal location: left lower quadrant Qualified Code(s): R10.32 - Left lower quadrant pain (2) Rectal bleeding Current Visit: Yes Status: Acute Assessment and plan: Hemoccult is positive but he his Hb has remained WNL and stable He is currently hemodynamically stable and has not required any transfusion (3) CKD (chronic kidney disease) stage 3, GFR 30-59 ml/min Current Visit: Yes Status: Chronic Assessment and plan: Creatinine stable at his baseline No electrolyte abnormalities (4) Risk for falls Current Visit: Yes Status: Chronic Assessment and plan: PT/OT recommend custodial facility SW working on placement to [facility] (5) Dementia Current Visit: Yes Status: Chronic Assessment and plan: No family at bedside to verify patient's mental status from baseline; currently A/O x 1; only knows name, not CT head initially negative and he does not have infectious/metabolic derangements Awaiting placement to SNF, planning on [facility] PRN for anxiety Qualifiers: Dementia type: Alzheimer's disease Alzheimer's disease onset: unspecified onset Dementia behavioral disturbance: without behavioral disturbance Qualified Code(s): G30.9 - Alzheimer's disease, unspecified; F02.80 - Dementia in other diseases classified elsewhere without behavioral disturbance; F02.80 - Dementia in other diseases classified elsewhere without behavioral disturbance; F02.80 - Dementia in other diseases classified elsewhere without behavioral disturbance (6) DVT prophylaxis Current Visit: Yes Status: Acute Assessment and plan: SCDs for now as heparin or Lovenox due to fall risk - Subjective Interval history: Pt seen and examined. He is awake and alert, answering questions appropriately but he has history of dementia and there is no one at beside this morning. He has complaints of left headache and lower abdominal pain but cannot tell me if he has had issues with nausea, vomiting, diarrhea or fevers. - Constitutional Vitals: Temp Pulse Resp BP Pulse Ox 97.9 F 83 16 138/87 94 11/16/17 07:00 07/05/17 07:00 07/05/17 07:00 07/05/17 07:00 07/05/17 07:00 General appearance: Present: A&O X 1 (knows own name but not ), disheveled, pleasant, no acute distress, answers questions appropriately - Head Head exam: Present: atraumatic, normocephalic - Eye Eye exam: Present: PERRL, conjuntiva pink, sclera anicteric - Neck Neck exam general surgery: Present: supple, trachea midline. Absent: lymphadenopathy - Respiratory Respiratory exam: Present: CTAB. Absent: accessory muscle use, rales, rhonchi, wheezes - Cardiovascular Cardiovascular exam: Present: RRR, +S1, +S2. Absent: diastolic murmur, gallop, rubs, systolic murmur - GI/Abdominal GI/Abdominal exam: Present: normal bowel sounds, soft, tenderness (lower abdomen , but not worse with palpation), no peritoneal signs. Absent: distended - Extremities Exam Extremities exam: Present: warm, radial pulses palpable and symmetrical. Absent : calf tenderness, cyanotic, pedal edema - Neurological Exam Neurological exam: Present: alert, no focal deficits. Absent: oriented X3, facial droop, speech deficit - Skin Skin exam: Present: dry, intact Internal Medicine: Result - Labs CBC & Chem 7: 07/05/17 04:12 06/30/17 05:29 Labs: Short CBC 07/05/17 Range/Units 04:12 WBC 10.4 (4.3-11.1) K/mcL Hgb 14.7 (12.9-16.9) g/dL Hct 44.5 (37.5-50.1) % Plt Count 289 (140-400) K/mcL - Impressions Impressions Head CT 07/04/17 16:35 IMPRESSION: No acute intracranial abnormality is identified. Interval placement of a right frontal approach ventriculostomy catheter since 2014, with similar size ventricles to the previous examination. Chronic generalized age-appropriate atrophy, with chronic microvascular ischemic changes. D/ / Jared Crews MD / Jared Crews MD Interpreting Provider: Jared Crews MD Chest X-Ray 07/04/17 16:37 IMPRESSION: No evidence of pneumonia or any other acute cardiopulmonary abnormality. D/ / Victorino Beyer / Victorino Beyer Interpreting Provider: Victorino Beyer Consult Discharge Plan - Plan Instructions: Clonazepam (By mouth) Referrals: Jared Woods MD [Primary Care Provider] - Prescriptions: clonazePAM [Clonazepam] 0.25 mg PO TID PRN #20 tab.rapdis PRN Reason: Agitation <Dwayne Saldana - Last Filed: 07/05/17 18:43> Date of Encounter: 07/05/17 - Assessment and plan (1) Rectal bleeding Current Visit: Yes Status: Acute (2) Acute blood loss anemia Current Visit: Yes Status: Acute (3) Abdominal pain Current Visit: Yes Status: Acute Qualifiers: Abdominal location: left lower quadrant Qualified Code(s): R10.32 - Left lower quadrant pain (4) Dementia Current Visit: Yes Status: Chronic Qualifiers: Dementia type: Alzheimer's disease Alzheimer's disease onset: unspecified onset Dementia behavioral disturbance: without behavioral disturbance Qualified Code(s): G30.9 - Alzheimer's disease, unspecified; F02.80 - Dementia in other diseases classified elsewhere without behavioral disturbance; F02.80 - Dementia in other diseases classified elsewhere without behavioral disturbance; F02.80 - Dementia in other diseases classified elsewhere without behavioral disturbance (5) Mucopurulent chronic bronchitis Current Visit: No Status: Acute (6) CKD (chronic kidney disease) stage 3, GFR 30-59 ml/min Current Visit: Yes Status: Chronic - Constitutional Vitals: Temp Pulse Resp BP Pulse Ox 98.0 F 85 14 124/74 95 07/05/17 15:18 07/05/17 15:18 07/05/17 15:18 07/05/17 15:18 07/05/17 15:18 Internal Medicine: Result - Labs CBC & Chem 7: 07/05/17 04:12 06/30/17 05:29 Labs: Short CBC 07/05/17 Range/Units 04:12 WBC 10.4 (4.3-11.1) K/mcL Hgb 14.7 (12.9-16.9) g/dL Hct 44.5 (37.5-50.1) % Plt Count 289 (140-400) K/mcL - Attending Attestation I examined this patient and my medical decision-making was reviewed with the Resident Physician on 07/05/17. I agree with the documented findings, disposition and treatment plan as described except to the extent set forth below. Mr Gonzalez is currently admitted for abdominal pain and dementia. He remains moderate risk due to potential for worsening clinical status. Mr Gonzalez is resting comfortably. Denies issues. Exam Alert. Comfortable Heart reg No wheeze Abd soft I/P 1. Abd pain 2. Rectal bleed 3. Dementia Further diagnoses and plan as above.
--- NOTE | 2017-07-05 13:20 | Consult Note ---
Date of Encounter: 07/05/17 Time of Encounter: 11:45 Assessment & Recommendation (1) Altered mental status Current visit: Yes Status: Acute Assessment & Recommendation: reports declining mental status over the past few weeks and it is unclear what his baseline is but he does appear to be more confused since his hospitalization. At this time patient is being given Klonopin for agitation. Consider switching to low dose of Seroquel 12.5 mg by mouth twice a day when necessary rather than Klonopin. Patient was apparently on the clonazepam as an outpatient so that would need to be tapered rather than stop abruptly. Qualifiers: Altered mental status type: disorientation Qualified Code(s): R41.0 - Disorientation, unspecified (2) Dementia Current visit: Yes Status: Chronic Assessment & Recommendation: Patient is unable to care for himself at home and has some agitation since arrival to the hospital. Patient may benefit from placement to [facility]. Qualifiers: Dementia type: Alzheimer's disease Alzheimer's disease onset: unspecified onset Dementia behavioral disturbance: without behavioral disturbance Qualified Code(s): G30.9 - Alzheimer's disease, unspecified; F02.80 - Dementia in other diseases classified elsewhere without behavioral disturbance; F02.80 - Dementia in other diseases classified elsewhere without behavioral disturbance; F02.80 - Dementia in other diseases classified elsewhere without behavioral disturbance History of Present Illness Patient: new to practice Requesting Physician: Dwayne Saldana DO Reason for consult: Dementia, confusion History of present illness: Mr. Gonzalez is a 82 year old male with history of multiple medical issues who presented to the hospital with abdominal pain and confusion. Today he is unable to participate in the interview but is alert to person only. Speech is difficult to understand at times and patient is not aware of why he is in the hospital. Per staff patient has been doing okay but apparently there has been a history of some agitation and confusion that has been worsening. Carla was contacted at [phone]. She reports that patient has been coming more confused lately. He apparently had a shunt and thinks that his mental status has worsened since that procedure. He is having trouble walking and falls a lot at home. Family is unable to care for him there. reports that he has had a history of some confusion which has worsened much more over the last few weeks. CC: Dwayne A Les, DO Past Med Surg Social Fam HX - Past Medical History Medical history: arthritis, cancer, CHF, coronary artery disease, DVT, dementia , hyperlipidemia, hypertension, kidney stones, myocardial infarction, renal disease - Past Psychiatric History Psychiatric history: Reports: other (History of dementia). Denies: prior suicide attempt, previous psychiatric hospitalization Family psychiatric history: No Family History of Suicide: None - Past Surgical History Surgical History: cancer surgery, coronary bypass (CABG), other - Social History Smoking Status: Never smoker Smokeless Tobacco Status: No Alcohol use: none Drug use: none Current living situation: Home, With Family - Family History Son Adopted: No Family Member Ethnicity: Non- Living Status: Still Living Hx Family Cardiac Disorders: Yes Hx Family Respiratory Disorders: No Hx Family Cancer: Yes Hx Family GI Disorders: No Hx Family Endocrine Disorder: No Hx Family Neuromuscular Disorders: No Hx Family Neurologic Disorders: No Hx Family HEENT Disorders: No Hx Family Autoimmune Disorders: No Medications & Allergies Tamsulosin [Flomax] 0.4 mg PO DAILY 08/15/15 [History] Cholecalciferol (D-3) [Vitamin D] 3,000 unit PO DAILY 06/28/17 [History] Vit A/Vit C/Vit E/Zinc/Copper [Preservision Areds Tablet] 1 each PO BID [History] clonazePAM [Clonazepam] 0.25 mg PO TID PRN #20 tab.rapdis 07/02/17 [Rx] 3 Allergy/AdvReac Type Severity Reaction Status Date / Time isosorbide [From Imdur] Allergy Hives Verified 06/28/17 17:10 lisinopril Allergy Hives Verified 06/28/17 17:10 Review of Systems ROS unobtainable: due to patient condition Mental Status Exam Patient orientation: Yes Person Level of alertness: Alert Patient appearance: Unkempt Behavior: restless Psychomotor activity: Increased Eye contact: Minimal Contact Mood description: Euthymic/stable Affect description: constricted Speech pattern: Rambling Speech volume: Normal Thought process: Disorganized Thought content: No Suicidal ideation Perceptual disturbances: No Auditory hallucinations, No Visual hallucinations Attention span: Unable to Focus, Unable to Sustain Attention Memory description: Immediate Impaired, Recent Impaired, Remote Impaired Patient reliability: Not Reliable Historian Intelligence estimate: Average Judgment: Poor Insight: None Results - Vital Signs Vital signs: Temp Pulse Resp BP Pulse Ox 97.7 F 93 16 137/87 96 07/05/17 11:00 07/05/17 11:00 07/05/17 11:00 07/05/17 11:00 07/05/17 11:00 - Labs Labs: Laboratory Last Values WBC 10.4 K/mcL (4.3-11.1) 07/05/17 04:12 RBC 5.02 M/mcL (4.19-5.50) 07/05/17 04:12 Hgb 14.7 g/dL (12.9-16.9) 07/05/17 04:12 Hct 44.5 % (37.5-50.1) 07/05/17 04:12 MCV 88.6 fL (83.0-100.0) 07/05/17 04:12 MCH 29.3 pg (28.0-33.3) 07/05/17 04:12 MCHC 33.0 g/dL (31.6-35.5) 07/05/17 04:12 RDW 12.8 % (11.5-14.5) 07/05/17 04:12 Plt Count 289 K/mcL (140-400) 07/05/17 04:12 MPV 10.3 fL (9.4-12.4) 07/05/17 04:12 Immature Gran % 0.5 % (0-4) 06/30/17 05:29 Seg Neutrophils % 66.9 % 06/30/17 05:29 Lymphocytes % 18.4 % 06/30/17 05:29 Monocytes % 9.5 % 06/30/17 05:29 Eosinophils % 3.8 % 06/30/17 05:29 Basophils % 0.9 % 06/30/17 05:29 Neutrophils # 5.8 K/mcL (1.6-8.9) 06/30/17 05:29 Lymphocytes # 1.6 K/mcL (0.6-4.6) 06/30/17 05:29 Monocytes # 0.8 K/mcL (0.0-1.3) 06/30/17 05:29 Eosinophils # 0.3 K/mcL (0.0-0.6) 06/30/17 05:29 Basophils # 0.1 K/mcL (0.0-0.2) 06/30/17 05:29 Sodium 140 mEq/L (136-145) 06/30/17 05:29 Potassium 4.1 mEq/L (3.5-4.5) 06/30/17 05:29 Chloride 106 mEq/L (98-109) 06/30/17 05:29 Carbon Dioxide 26 mEq/L (19-29) 06/30/17 05:29 BUN 17 mg/dL (8-26) 06/30/17 05:29 Creatinine 1.48 mg/dL (0.72-1.25) H 06/30/17 05:29 Est GFR ( Amer) 55 (> 60) L 06/30/17 05:29 Est GFR (Non-Af Amer) 45 (> 60) L 06/30/17 05:29 BUN/Creatinine Ratio 11 (6-26) 06/30/17 05:29 Glucose 97 mg/dL (70-99) 06/30/17 05:29 POC Glucose 86 (58-89) 06/29/17 12:06 Calculated Osmolality 291 (280-300) 06/30/17 05:29 Lactic Acid 1.4 mmol/L (0.5-2.2) 06/28/17 18:26 Calcium 8.9 mg/dL (8.6-10.8) 06/30/17 05:29 Total Bilirubin 0.4 mg/dL (0.2-1.2) 06/28/17 18:26 Direct Bilirubin 0.1 mg/dL (0.0-0.5) 06/28/17 18:26 Indirect Bilirubin 0.3 mg/dL (0.0-1.2) 06/28/17 18:26 AST 13 Units/L (5-34) 06/28/17 18:26 ALT 13 Units/L (0-55) 06/28/17 18:26 Alkaline Phosphatase 95 Units/L (38-126) 06/28/17 18:26 Troponin I 0.00 ng/mL (0-0.03) 06/28/17 18:26 Serum Total Protein 6.0 g/dL (6.0-8.3) 06/28/17 18:26 Albumin 3.3 g/dL (3.5-5.0) L 06/28/17 18:26 Globulin 2.7 g/dL (2.4-3.5) 06/28/17 18:26 Albumin/Globulin Ratio 1.2 (1.1-2.2) 06/28/17 18:26 Amylase 85 Units/L (25-125) 06/28/17 18:26 Lipase 24 Units/L (8-78) 06/28/17 18:26 Urine Color Yellow (Yellow) 06/29/17 13:20 Urine Clarity Clear (Clear) 06/29/17 13:20 Urine pH 7.5 pH Units (5.0-8.0) 06/29/17 13:20 Ur Specific [place] 1.019 (1.010-1.025) 06/29/17 13:20 Urine Protein Negative mg/dL (Neg-Trace) 06/29/17 13:20 Urine Glucose (UA) Normal mg/dL (Normal) 06/29/17 13:20 Urine Ketones Negative mg/dL (Negative) 06/29/17 13:20 Urine Blood Negative (Negative) 06/29/17 13:20 Urine Nitrite Negative (Negative) 06/29/17 13:20 Urine Bilirubin Negative (Negative) 06/29/17 13:20 Urine Urobilinogen Normal mg/dL (Normal) 06/29/17 13:20 Ur Leukocyte Esterase Negative (Negative) 06/29/17 13:20 Ur Culture Indicated? NO (NO) 06/29/17 13:20 Stool Occult Blood Positive (Negative) A 06/28/17 17:50 - Impressions Impressions Head CT 07/04/17 16:35 IMPRESSION: No acute intracranial abnormality is identified. Interval placement of a right frontal approach ventriculostomy catheter since 2014, with similar size ventricles to the previous examination. Chronic generalized age-appropriate atrophy, with chronic microvascular ischemic changes. D/ / Jared Crews MD / Jared Crews MD Interpreting Provider: Jared Crews MD Chest X-Ray 07/04/17 16:37 IMPRESSION: No evidence of pneumonia or any other acute cardiopulmonary abnormality. D/ / Victorino Beyer / Victorino Beyer Interpreting Provider: Victorino Beyer Consult Discharge Plan - Plan Instructions: Clonazepam (By mouth) Referrals: Jared Woods MD [Primary Care Provider] - Prescriptions: clonazePAM [Clonazepam] 0.25 mg PO TID PRN #20 tab.rapdis PRN Reason: Agitation
[2017-07-05] MEDS: Sennosides/Docusate Sodium TABLET PO SCH (21:25)
[2017-07-05] MEDS: Acetaminophen 325 MG TABLET PO PRN (21:42)
--- NOTE | 2017-07-06 15:58 | Internal Med Progress Note ---
Date of Encounter: 07/06/17 Time of Encounter: 13:00 - Assessment and plan (1) Rectal bleeding Current Visit: Yes Status: Acute Assessment and plan: No overt bleeding noted. H/H has remained stable. Continue supportive conservative care at this time. (2) Acute blood loss anemia Current Visit: Yes Status: Acute Assessment and plan: Hemoglobin has been stable and he has not required transfusion. (3) Abdominal pain Current Visit: Yes Status: Acute Assessment and plan: No new issues. Tolerating diet. Qualifiers: Abdominal location: left lower quadrant Qualified Code(s): R10.32 - Left lower quadrant pain (4) Dementia Current Visit: Yes Status: Chronic Assessment and plan: Working on d/c plans at this time. Continue same medications. Qualifiers: Dementia type: Alzheimer's disease Alzheimer's disease onset: unspecified onset Dementia behavioral disturbance: without behavioral disturbance Qualified Code(s): G30.9 - Alzheimer's disease, unspecified; F02.80 - Dementia in other diseases classified elsewhere without behavioral disturbance; F02.80 - Dementia in other diseases classified elsewhere without behavioral disturbance; F02.80 - Dementia in other diseases classified elsewhere without behavioral disturbance (5) Mucopurulent chronic bronchitis Current Visit: No Status: Chronic Assessment and plan: Continue supportive care. (6) CKD (chronic kidney disease) stage 3, GFR 30-59 ml/min Current Visit: Yes Status: Chronic Assessment and plan: No change at this time. - Subjective Interval history: Mr. Gonzalez is currently admitted for acute LGI bleed and dementia. He remains moderate risk due to potential for further bleeding. He is awaiting discharge and SW working on discharge placement. Mr Gonzalez is resting comfortably at this time. He denies CP or SOB. No abd pain at this time. No further bleeding noted. No fever or chills. He says his appetite is OK. - Constitutional Vitals: Temp Pulse Resp BP Pulse Ox 99.1 F 95 18 101/65 95 07/06/17 15:08 07/06/17 15:08 07/06/17 15:08 07/06/17 15:08 07/06/17 15:08 General appearance: Present: A&O X 1 (knows own name but not ), disheveled, pleasant, answers questions appropriately - Head Head exam: Present: normocephalic - Eye Eye exam: Present: EOMI, conjuntiva pink - ENT ENT exam: Present: mucous membranes moist - Respiratory Respiratory exam: Present: CTAB. Absent: rales, rhonchi, wheezes - Cardiovascular Cardiovascular exam: Present: RRR. Absent: tachycardia - GI/Abdominal GI/Abdominal exam: Present: soft. Absent: mass, tenderness - Extremities Exam Extremities exam: Present: warm. Absent: tenderness - Neurological Exam Neurological exam: Present: alert, no focal deficits - Skin Skin exam: Present: dry, warm. Absent: rash Internal Medicine: Result - Labs CBC & Chem 7: 07/05/17 04:12 06/30/17 05:29 Consult Discharge Plan - Plan Instructions: Clonazepam (By mouth) Referrals: Jared Woods MD [Primary Care Provider] - Prescriptions: clonazePAM [Clonazepam] 0.25 mg PO TID PRN #20 tab.rapdis PRN Reason: Agitation
[2017-07-06] MEDS: Acetaminophen 325 MG TABLET PO PRN (20:35)
[2017-07-06] MEDS: Sennosides/Docusate Sodium TABLET PO SCH (20:35)
[2017-07-06] MEDS: clonazePAM 0.5 MG TABLET PO PRN (23:01)
[2017-07-07] MEDS: Acetaminophen 325 MG TABLET PO PRN (12:38)
--- NOTE | 2017-07-07 17:55 | Internal Med Progress Note ---
Date of Encounter: 07/07/17 Time of Encounter: 12:15 - Assessment and plan (1) Rectal bleeding Current Visit: Yes Status: Resolved Assessment and plan: No further bleeding noted. H/H stable. Will recheck tomorrow and treat if needed. (2) Acute blood loss anemia Current Visit: Yes Status: Acute Assessment and plan: Recheck H/H tomorrow. (3) Abdominal pain Current Visit: Yes Status: Acute Assessment and plan: Appears to have improved. Tolerating diet. Qualifiers: Abdominal location: left lower quadrant Qualified Code(s): R10.32 - Left lower quadrant pain (4) Dementia Current Visit: Yes Status: Chronic Assessment and plan: Working on d/c plans at this time. Continue same medications. Qualifiers: Dementia type: Alzheimer's disease Alzheimer's disease onset: unspecified onset Dementia behavioral disturbance: without behavioral disturbance Qualified Code(s): G30.9 - Alzheimer's disease, unspecified; F02.80 - Dementia in other diseases classified elsewhere without behavioral disturbance; F02.80 - Dementia in other diseases classified elsewhere without behavioral disturbance; F02.80 - Dementia in other diseases classified elsewhere without behavioral disturbance (5) Mucopurulent chronic bronchitis Current Visit: No Status: Chronic Assessment and plan: Continue supportive care. (6) CKD (chronic kidney disease) stage 3, GFR 30-59 ml/min Current Visit: Yes Status: Chronic Assessment and plan: No change at this time. - Subjective Interval history: Mr. Gonzalez is currently admitted for acute LGI bleed and dementia. He remains moderate risk due to potential for further bleeding. He is awaiting discharge and SW working on discharge placement. Mr Gonzalez is resting. He has had some lunch. No complaints at this time. No fever or chills. Awaiting placement. - Constitutional Vitals: Temp Pulse Resp BP Pulse Ox 97.7 F 86 16 113/69 95 07/07/17 14:48 07/07/17 14:48 07/07/17 14:48 07/07/17 14:48 07/07/17 14:48 General appearance: Present: A&O X 1 (knows own name but not ), disheveled, pleasant, answers questions appropriately - Head Head exam: Present: normocephalic - Eye Eye exam: Present: EOMI, conjuntiva pink - ENT ENT exam: Present: mucous membranes dry - Respiratory Respiratory exam: Present: decreased breath sounds, CTAB - Cardiovascular Cardiovascular exam: Present: RRR. Absent: tachycardia - GI/Abdominal GI/Abdominal exam: Present: soft. Absent: tenderness - Extremities Exam Extremities exam: Present: warm. Absent: tenderness - Neurological Exam Neurological exam: Present: alert, altered - Skin Skin exam: Present: warm. Absent: rash Internal Medicine: Result - Labs CBC & Chem 7: 07/05/17 04:12 06/30/17 05:29 Consult Discharge Plan - Plan Instructions: Clonazepam (By mouth) Referrals: Jared Woods MD [Primary Care Provider] - Prescriptions: clonazePAM [Clonazepam] 0.25 mg PO TID PRN #20 tab.rapdis PRN Reason: Agitation
[2017-07-07] MEDS: Sennosides/Docusate Sodium TABLET PO SCH ×2 (21:01→21:12)
[2017-07-07] MEDS: clonazePAM 0.5 MG TABLET PO PRN (21:01)
[2017-07-08 05:29] LABS: Albumin 3.6 g/dL (3.5-5.0); Albumin/Globulin Ratio 1.5 (1.1-2.2); Bilirubin,Total 0.7 mg/dL (0.2-1.2); Calcium 9.1 mg/dL (8.6-10.8); Globulin 2.4 g/dL (2.4-3.5); Magnesium 2.1 mg/dL (1.6-2.6); Potassium 4.1 mEq/L (3.5-4.5)
[2017-07-08 06:05] LABS: Hematocrit 41.6 % (37.5-50.1); Hemoglobin 14.2 g/dL (12.9-16.9); Mean Corpuscular HGB Conc 34.1 g/dL (31.6-35.5); Mean Corpuscular Volume 87.9 fL (83.0-100.0); Mean Platelet Volume 10.2 fL (9.4-12.4); Red Blood Count 4.73 M/mcL (4.19-5.50); Red Cell Distribution Width 12.5 % (11.5-14.5)
--- NOTE | 2017-07-08 14:54 | Internal Med Progress Note ---
Date of Encounter: 07/08/17 Time of Encounter: 11:30 - Assessment and plan (1) Rectal bleeding Current Visit: Yes Status: Resolved Assessment and plan: No further bleeding noted. H/H stable. (2) Acute blood loss anemia Current Visit: Yes Status: Acute Assessment and plan: H/H appears to be remaining stable. No further bleeding noted. (3) Abdominal pain Current Visit: Yes Status: Resolved Assessment and plan: Tolerating diet. Qualifiers: Abdominal location: left lower quadrant Qualified Code(s): R10.32 - Left lower quadrant pain (4) Dementia Current Visit: Yes Status: Chronic Assessment and plan: Working on d/c plans at this time. Qualifiers: Dementia type: Alzheimer's disease Alzheimer's disease onset: unspecified onset Dementia behavioral disturbance: without behavioral disturbance Qualified Code(s): G30.9 - Alzheimer's disease, unspecified; F02.80 - Dementia in other diseases classified elsewhere without behavioral disturbance; F02.80 - Dementia in other diseases classified elsewhere without behavioral disturbance; F02.80 - Dementia in other diseases classified elsewhere without behavioral disturbance (5) Mucopurulent chronic bronchitis Current Visit: No Status: Chronic Assessment and plan: Continue supportive care. (6) CKD (chronic kidney disease) stage 3, GFR 30-59 ml/min Current Visit: Yes Status: Chronic Assessment and plan: No change at this time. Creatinine essentially the same. Avoid nephrotoxic drugs. - Subjective Interval history: Mr. Gonzalez is currently admitted for acute LGI bleed and dementia. He remains moderate risk due to potential for further bleeding. He is awaiting discharge and SW working on discharge placement. Mr Gonzalez is awaiting lunch. Denies pain at this time. No further bleeding noted. No fever or chills. No cough. Awaiting discharge plans. Denies SOB. - Constitutional Vitals: Temp Pulse Resp BP Pulse Ox 97.5 F L 79 15 143/90 95 07/08/17 10:50 07/08/17 10:50 07/08/17 10:50 07/08/17 10:50 07/08/17 10:50 General appearance: Present: A&O X 1 (knows own name but not ), disheveled, pleasant, answers questions appropriately - Head Head exam: Present: atraumatic, normocephalic - Eye Eye exam: Present: conjuntiva pink - ENT ENT exam: Present: mucous membranes dry - Respiratory Respiratory exam: Present: decreased breath sounds, CTAB. Absent: rales, respiratory distress, wheezes - Cardiovascular Cardiovascular exam: Present: RRR. Absent: tachycardia - GI/Abdominal GI/Abdominal exam: Present: soft. Absent: tenderness - Extremities Exam Extremities exam: Present: warm. Absent: tenderness - Neurological Exam Neurological exam: Present: alert. Absent: facial droop - Skin Skin exam: Present: warm. Absent: rash Internal Medicine: Result - Labs CBC & Chem 7: 07/08/17 05:47 07/08/17 04:22 Labs: Short CBC 07/08/17 Range/Units 05:47 WBC 8.5 (4.3-11.1) K/mcL Hgb 14.2 (12.9-16.9) g/dL Hct 41.6 (37.5-50.1) % Plt Count 278 (140-400) K/mcL BMP 07/08/17 04:22 Sodium 138 Potassium 4.1 Chloride 108 Carbon Dioxide 21 BUN 17 Creatinine 1.42 H Glucose 87 Calcium 9.1 Liver Function 07/08/17 Range/Units 04:22 Total Bilirubin 0.7 (0.2-1.2) mg/dL AST 23 (5-34) Units/L ALT 35 (0-55) Units/L Alkaline Phosphatase 98 (38-126) Units/L Albumin 3.6 (3.5-5.0) g/dL Consult Discharge Plan - Plan Instructions: Clonazepam (By mouth) Referrals: Jared Woods MD [Primary Care Provider] - Prescriptions: clonazePAM [Clonazepam] 0.25 mg PO TID PRN #20 tab.rapdis PRN Reason: Agitation
[2017-07-08] MEDS ORDERED: clonazePAM 0.5 MG TABLET PO PRN (14:57)
[2017-07-08] MEDS: Sennosides/Docusate Sodium TABLET PO SCH (20:25)
[2017-07-09] MEDS ORDERED: Haloperidol Lactate 5 MG/ML VIAL IM ONE (12:03)
--- NOTE | 2017-07-09 12:14 | Internal Med Progress Note ---
<Nehemias Arreguin - Last Filed: 07/09/17 13:58> Date of Encounter: 07/09/17 Time of Encounter: 11:30 - Assessment and plan (1) Dementia Current Visit: Yes Status: Chronic Assessment and plan: Patient became confused and combative, kicking several nurses morning. Center is currently present at bedside. Patient's reported that her has been more confused lately. Psychiatry has been consulted. Plan: -Klonopin 0.5 mg PO TID for agitation. -12.5 mg of Seroquel PO BID. -Per psychiatry, patient may benefit from placement to a geriatric psych unit. Qualifiers: Dementia type: Alzheimer's disease Alzheimer's disease onset: unspecified onset Dementia behavioral disturbance: without behavioral disturbance Qualified Code(s): G30.9 - Alzheimer's disease, unspecified; F02.81 - Dementia in other diseases classified elsewhere with behavioral disturbance; F02.81 - Dementia in other diseases classified elsewhere with behavioral disturbance; F02.81 - Dementia in other diseases classified elsewhere with behavioral disturbance (2) Abdominal pain Current Visit: Yes Status: Resolved Assessment and plan: Patient reports constant abdominal pain. Not reproducible by palpation. Patient is tolerating his diet. Qualifiers: Abdominal location: left lower quadrant Qualified Code(s): R10.32 - Left lower quadrant pain (3) CKD (chronic kidney disease) stage 3, GFR 30-59 ml/min Current Visit: Yes Status: Chronic Assessment and plan: Patient's creatinine this morning was 1.42. -This is around his baseline. -Avoid nephrotoxic medications. (4) Acute blood loss anemia Current Visit: Yes Status: Acute Assessment and plan: Patient initially presented with dark colored stools. Occult was positive in the ER. GI was consulted for colonoscopy. Per GI, recommended outpatient EGD and colonoscopy. No further bleeding has been noted. Patient's hemoglobin has been stable. On admission, patient's hemoglobin was 12.8. This morning was 14.2. - Subjective Interval history: Patient was seen and examined at bedside this morning. Sitter is present at bedside. Sitter reports the patient became combative this morning, taking several nurses. Patient does not appear to be agitated at the present time. Patient reports that he feels pain in his abdomen. He states that this pain is constant. He has some difficulty vocalizing. He is oriented to person only. He denies having any nausea, vomiting, fever, chills, weakness, or other GI distress. - Constitutional Vitals: Temp Pulse Resp BP Pulse Ox 98.0 F 114 20 118/77 96 07/09/17 11:19 07/09/17 11:19 07/09/17 11:19 07/09/17 11:19 07/09/17 11:19 General appearance: Present: A&O X 1 (knows own name but not ), disheveled, pleasant, answers questions appropriately - Cardiovascular Cardiovascular exam: Present: RRR, +S1, +S2. Absent: irregular rhythm - GI/Abdominal GI/Abdominal exam: Present: normal bowel sounds, soft, tenderness. Absent: firm - Neurological Exam Neurological exam: Absent: oriented X3 - Skin Skin exam: Present: dry, intact Internal Medicine: Result - Labs CBC & Chem 7: 07/08/17 05:47 07/08/17 04:22 Consult Discharge Plan - Plan Instructions: Clonazepam (By mouth) Referrals: Jared Woods MD [Primary Care Provider] - Prescriptions: clonazePAM [Clonazepam] 0.25 mg PO TID PRN #20 tab.rapdis PRN Reason: Agitation <Dwayne Saldana - Last Filed: 07/09/17 16:41> Date of Encounter: 07/09/17 - Assessment and plan (1) Dementia Current Visit: Yes Status: Chronic Qualifiers: Dementia type: Alzheimer's disease Alzheimer's disease onset: unspecified onset Dementia behavioral disturbance: with behavioral disturbance Qualified Code(s): G30.8 - Other Alzheimer's disease; F02.81 - Dementia in other diseases classified elsewhere with behavioral disturbance; F02.81 - Dementia in other diseases classified elsewhere with behavioral disturbance; F02.81 - Dementia in other diseases classified elsewhere with behavioral disturbance (2) Acute blood loss anemia Current Visit: Yes Status: Acute (3) Abdominal pain Current Visit: Yes Status: Resolved Qualifiers: Abdominal location: left lower quadrant Qualified Code(s): R10.32 - Left lower quadrant pain (4) Mucopurulent chronic bronchitis Current Visit: No Status: Chronic (5) CKD (chronic kidney disease) stage 3, GFR 30-59 ml/min Current Visit: Yes Status: Chronic - Constitutional Vitals: Temp Pulse Resp BP Pulse Ox 98.2 F 82 15 136/76 97 07/09/17 15:13 07/09/17 15:13 07/09/17 15:13 07/09/17 15:13 07/09/17 15:13 Internal Medicine: Result - Labs CBC & Chem 7: 07/08/17 05:47 07/08/17 04:22 - Attending Attestation I examined this patient and my medical decision-making was reviewed with the Resident Physician on 07/09/17. I agree with the documented findings, disposition and treatment plan as described except to the extent set forth below. Mr Gonzalez is admitted for acute encephalopathy. He had episode of agitation today and was given Haldol. Working on discharge planning. He remains moderate to high risk due to potential for worsening encephalopathy. Mr Gonzalez was comfortable this AM but became agitated later in the day. Haldol given IM. No fever or chills. No other acute medical issues. Awaiting placement. Exam Alert. Comfortable at this time. Heart reg Lungs no wheeze Abd soft I/P 1. Encephalopathy - PRN meds 2. D/C planning. Further diagnoses and plan as above.
[2017-07-09] MEDS: Sennosides/Docusate Sodium TABLET PO SCH (20:55)
[2017-07-10 07:14] LABS: Basophils # 0.1 K/mcL (0.0-0.2); Basophils % 1.2 %; Eosinophils # 0.4 K/mcL (0.0-0.6); Eosinophils % 3.7 %; Hematocrit 47.7 % (37.5-50.1); Hemoglobin 15.7 g/dL (12.9-16.9); Immature Granulocytes % 0.7 % (0-4); Lymphocytes # 2.2 K/mcL (0.6-4.6); Lymphocytes % 20.2 %; Mean Corpuscular HGB Conc 32.9 g/dL (31.6-35.5); Mean Corpuscular Hemoglobin 29.5 pg (28.0-33.3); Mean Corpuscular Volume 89.5 fL (83.0-100.0); Mean Platelet Volume 10.7 fL (9.4-12.4); Monocytes % 9.3 %; Neutrophils # 6.9 K/mcL (1.6-8.9); Platelet Count 278 K/mcL (140-400); Red Blood Count 5.33 M/mcL (4.19-5.50); Red Cell Distribution Width 12.8 % (11.5-14.5); Segmented Neutrophils % 64.9 %
[2017-07-10 07:29] LABS: Calcium 9.4 mg/dL (8.6-10.8); Potassium 4.4 mEq/L (3.5-4.5)
[2017-07-10 12:06] VITALS: BP 118/80
--- NOTE | 2017-07-10 17:21 | Discharge Summary ---
Date of Encounter: 07/10/17 Time of Encounter: 11:00 - Discharge Diagnosis (1) Rectal bleeding Priority: Primary Status: Resolved (2) Acute blood loss anemia Priority: Primary Status: Acute (3) CKD (chronic kidney disease) stage 3, GFR 30-59 ml/min Priority: Secondary Status: Chronic - Discharge Medications Prescriptions: clonazePAM [Clonazepam] 0.25 mg PO TID PRN #20 tab.rapdis PRN Reason: Agitation Home Medications: Tamsulosin [Flomax] 0.4 mg PO DAILY 08/15/15 [History] Cholecalciferol (D-3) [Vitamin D] 3,000 unit PO DAILY 06/28/17 [History] Vit A/Vit C/Vit E/Zinc/Copper [Preservision Areds Tablet] 1 each PO BID [History] clonazePAM [Clonazepam] 0.25 mg PO TID PRN #20 tab.rapdis 07/02/17 [Rx] Allergies/Adverse Reactions: 3 Allergy/AdvReac Type Severity Reaction Status Date / Time isosorbide [From Imdur] Allergy Hives Verified 06/28/17 17:10 lisinopril Allergy Hives Verified 06/28/17 17:10 Date of admission: 06/28/17 19:47 Primary care physician: Jared Woods MD Consults: 06/29/17 00:41 Consult to Gastroenterology [CONS] Routine Consulting Provider: Gastroenterology [facility] Reason for Consult: lower GI bleed Call Completed: No 06/29/17 12:23 Consult to Cattle Tester [CONS] Routine Reason for SW Consult: discharge needs 06/29/17 12:34 Consult to Occupational Therapy [CONS] Stat Comment: Evaluate, develop and implement POC Reason for Consult: discharge planning, DC today Consult to Physical Therapy [CONS] Stat Comment: Evaluate, develop and implement POC Reason for Consult: discharge planning, DC today 07/04/17 16:37 Consult to Psychiatry [CONS] Stat Consulting Provider: Psychiatry [facility] Reason for Consult: change in mentation, combative Call Completed: Yes - Patient Status Disposition: Transfer Psychiatric Hosp Condition: Fair - Discharge Instructions Instructions: Clonazepam (By mouth) Follow Up With: Jared Woods MD [Primary Care Provider] - Hospital course: Patient is an 82-year-old male with past medical history significant for CKD stage III, who presented to the ER on 06/28/17 with lower GI bleed. In the ER patient was found to have an occult positive stool in addition to anemia (hemoglobin 12.8). Patient was admitted to the medical floor for acute blood loss anemia secondary to lower GI bleed. During patients hospital stay, GI was consulted and did not recommend any further inpatient intervention due to not having any active bleeding or decline in hemoglobin; recommendations to follow up as outpatient for EGD/colonoscopy. Also during patients hospital stay, he developed behavioral disturbances with his dementia and was combative. Psychiatry was consulted with recommendations for geriatric psychiatric unit placement. There is a geriatric psychiatric unit that will accept the patient and patient will be discharged pending completion of paperwork. - Time Spent with Patient Total time spent providing and/or coordinating discharge services: Less than 30 minutes - Constitutional Vitals: Temp Pulse Resp BP Pulse Ox 98.6 F 81 18 118/80 95 07/10/17 12:05 07/10/17 12:05 07/10/17 12:05 07/10/17 12:05 07/10/17 12:05 General appearance: Present: A&O X 1 (knows own name but not ), disheveled, pleasant, answers questions appropriately - Cardiovascular Cardiovascular exam: Present: RRR, +S1, +S2. Absent: diastolic murmur, gallop, rubs, systolic murmur
== END 2017-07-10 18:28 ==
LOC: 3BNU 17:04 → EMEROO 17:04 → SUATTDRO 19:47 → 3BNU 21:21
PROVIDERS: ADMIT Registered Nurse; ATTEND Hospitalist